=== PATIENT | female | born 1945 | race Caucasian/White ===

== ENCOUNTER 2023-12-03 11:33 | Day surgery (SDC) | payer MEDICARE, OTHER ==
[2023-12-01 11:46] VITALS: BMI 35.6
[2023-12-03] MEDS ORDERED: Dexamethasone 20 MG/5 ML VIAL ONE (12:17)
[2023-12-03] MEDS ORDERED: fentaNYL PF 100 MCG/2 ML SYRINGE ONE (12:17)
[2023-12-03] MEDS ORDERED: Lidocaine 1% PF 5 ML VIAL ONE (12:17)
[2023-12-03] MEDS ORDERED: Ondansetron PF 4 MG/2 ML Vial ONE (12:17)
[2023-12-03] MEDS ORDERED: PROPOFOL 20 ML ONE ×2 (12:17→13:34)
[2023-12-03] MEDS ORDERED: EPINEPHrine 1 MG/ML VIAL ONE ×2 (12:20→12:24)
[2023-12-03] MEDS ORDERED: Triamcinolone 40 MG/ML VIAL ONE (12:20)
[2023-12-03] MEDS ORDERED: Lidocaine 1% (PF) 30 ML VIAL ONE (12:21)
[2023-12-03] MEDS ORDERED: Oxymetazoline HCl 0.05% (30 ML BOT) ONE (12:45)
[2023-12-03 12:53] LABS: Hematocrit 37.2 % (36.0-47.0); Hemoglobin 12.6 g/dL (12.0-16.0)
[2023-12-03] MEDS ORDERED: ePHEDrine Sulfate 50 MG/10 ML VIAL ONE (13:12)
[2023-12-03 13:16] LABS: Anion Gap 13 mmol/L (10-20); BUN (Urea Nitrogen) 31 mg/dL (9.8-20.1); Calc. Creatinine Clearance 49 mL/min (70-130); Calcium 9.3 mg/dL (7.8-10.44); Carbon Dioxide 24 mmol/L (23-31); Chloride 107 mmol/L (98-107); Estimated GFR 35; Glucose 124 mg/dL (83-110); Potassium 4.6 mmol/L (3.5-5.1); Sodium 139 mmol/L (136-145)
[2023-12-03] MEDS ORDERED: methylPREDNISolone Acetate 40 mg/ml Vial ONE (13:18)
[2023-12-03] MEDS ORDERED: PHENYLEPHRINE-NS 100 MCG/ML 10 ML SYRINGE ONE (13:58)
== END 2023-12-03 16:33 | disposition home or self-care (01) ==
LOC: SDC 11:33
PROVIDERS: ATTEND Specialist
PROC: 09TV8ZZ Resection of Left Ethmoid Sinus, Via Natural or Artificial Opening Endoscopic (ICD-10-PCS; principal; 2023-12-03)
PROC: 09TW8ZZ Resection of Right Sphenoid Sinus, Via Natural or Artificial Opening Endoscopic (ICD-10-PCS; 2023-12-03)
PROC: 09TQ8ZZ Resection of Right Maxillary Sinus, Via Natural or Artificial Opening Endoscopic (ICD-10-PCS; 2023-12-03)
PROC: 09TR8ZZ Resection of Left Maxillary Sinus, Via Natural or Artificial Opening Endoscopic (ICD-10-PCS; 2023-12-03)
PROC: 09TS8ZZ Resection of Right Frontal Sinus, Via Natural or Artificial Opening Endoscopic (ICD-10-PCS; 2023-12-03)
PROC: 09TT8ZZ Resection of Left Frontal Sinus, Via Natural or Artificial Opening Endoscopic (ICD-10-PCS; 2023-12-03)
PROC: 09TU8ZZ Resection of Right Ethmoid Sinus, Via Natural or Artificial Opening Endoscopic (ICD-10-PCS; 2023-12-03)
DX: J32.9 Chronic sinusitis, unspecified (principal); J34.3 Hypertrophy of nasal turbinates; R51.9 Headache, unspecified; E03.9 Hypothyroidism, unspecified; E11.9 Type 2 diabetes mellitus without complications; I10 Essential (primary) hypertension; K21.9 Gastro-esophageal reflux disease without esophagitis; M19.90 Unspecified osteoarthritis, unspecified site; Z90.710 Acquired absence of both cervix and uterus; Z98.49 Cataract extraction status, unspecified eye; Z79.899 Other long term (current) drug therapy; Z88.1 Allergy status to other antibiotic agents; Z88.5 Allergy status to narcotic agent
CPT/HCPCS: 30140; 31257; 31267; 31276; 61782; 80048; 82962; 85014; 85018; 87070; 87075; 87077; 87186; 87205; 93005; J0171; 36416; 93010; J1030; J1100; J2001; J2405; J2704; J3301